=== PATIENT | male | born 1990 | race Caucasian/White ===

== ENCOUNTER 2017-07-30 12:42 | Emergency (ER) | payer SELFPAY ==
[2017-07-30] MEDS ORDERED: NORMAL SALINE 1000 ML 1,000 ML IV PRN (13:06)
[2017-07-30] MEDS ORDERED: IBUPROFEN 600 MG TABLET PO ONE (13:06)
[2017-07-30] MEDS ORDERED: KETOROLAC TROMETHAMINE INJ/PF 30 MG/1 ML SDV IV ONE (13:06)
[2017-07-30] MEDS ORDERED: ONDANSETRON HCL INJ/PF 4 MG/2 ML SDV IV ONE (13:06)
--- NOTE | 2017-07-30 13:07 | ER Document Report ---
ED Medical Screen (RME) - General Chief Complaint: Flu Symptoms Stated Complaint: HEADACHE Time Seen by Provider: 07/30/17 13:05 Mode of Arrival: Ambulatory Information source: Patient TRAVEL OUTSIDE OF THE [place] IN LAST 30 DAYS: No - HPI Patient complains to provider of: Headache Notes: 07/30/17 13:07 Patient is a 26-year-old male presenting to the emergency room today complaining of 2 day history of headache, with fever, sore throat, sinus congestion, neck pain, took Excedrin Migraine this morning as well as a muscle relaxer with no relief of symptoms, patient is febrile and tachycardic in the triage area - Related Data Allergies/Adverse Reactions: No Known Allergies Allergy (Verified 07/30/17 12:57) Past Medical History - Social History Drug Abuse: None - Past Medical History Cardiac Medical History: Reports: Hx Hypertension Renal/ Medical History: Denies: Hx Peritoneal Dialysis Past Surgical History: Reports: Hx Appendectomy - Immunizations History of Influenza Vaccine for 07/2017 - 12/2017 Season: No Physical Exam - Vital signs Vitals: Temp Pulse Resp BP Pulse Ox 101.2 F H 130 H 22 H 136/82 H 97 07/30/17 12:53 07/30/17 12:53 07/30/17 12:53 07/30/17 12:53 07/30/17 12:53 Course - Vital Signs Vital signs: Temp Pulse Resp BP Pulse Ox 101.2 F H 130 H 22 H 136/82 H 97 07/30/17 12:53 07/30/17 12:53 07/30/17 12:53 07/30/17 12:53 07/30/17 12:53
[2017-07-30 13:57] LABS: APPEARANCE,URINE CLEAR; BILIRUBIN,URINE NEGATIVE (NEGATIVE); GLUCOSE, URINE NEGATIVE (NEGATIVE); KETONES,URINE NEGATIVE (NEGATIVE); LEUKOCYTE ESTERASE,URINE NEGATIVE (NEGATIVE); NITRITE,URINE NEGATIVE (NEGATIVE); PROTEIN,URINE NEGATIVE (NEGATIVE); URINE SPECIFIC GRAVITY 1.012; UROBILINOGEN,URINE NEGATIVE mg/dL (<2.0)
--- NOTE | 2017-07-30 13:59 | ER Document Report ---
ED General - General Chief Complaint: Flu Symptoms Stated Complaint: HEADACHE Time Seen by Provider: 07/30/17 13:05 Mode of Arrival: Ambulatory Information source: Patient Notes: 26 yo hx htn (stopped his meds-lost weight), woke up rachel morning and had sore throat and excruciating headache, hard to swallow. Went to work at home, throbbing FIGUEROA got worse, tinnitus. Today woke up with frontal FIGUEROA, fevers through the night. Tried to social worker delinquency prevention again, took muscle relaxer without relief. Neck soreness with movement, nausea intermittently, no myalgia or arthralgia. No cough, no rash, no v/d, no penile, testicle or scrltal pain. No abdominal pain. Apical heart rate 84 at this time. IV fluid running. TRAVEL OUTSIDE OF THE [place] 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 Lives with: Parents Family History: Reviewed & Not Pertinent Patient has suicidal ideation: No Patient has homicidal ideation: No - Past Medical History Cardiac Medical History: Reports: Hx Hypertension Renal/ Medical History: Denies: Hx Peritoneal Dialysis Past Surgical History: Reports: Hx Appendectomy Physical Exam - Vital signs Vitals: Temp Pulse Resp BP Pulse Ox 101.2 F H 130 H 22 H 136/82 H 97 07/30/17 12:53 07/30/17 12:53 07/30/17 12:53 07/30/17 12:53 07/30/17 12:53 Interpretation: Normal - General General appearance: Appears well, Alert - HEENT Head: Normocephalic, Atraumatic Eyes: Normal Conjunctiva: Normal Pupils: PERRL Tympanic membrane: Normal Mouth/Lips: Normal Mucous membranes: Dry Pharynx: Erythema - mild Neck: No: Lymphadenopathy, Meningismus, Thyromegally - Respiratory Respiratory status: No respiratory distress Chest status: Nontender Breath sounds: Normal Chest palpation: Normal - Cardiovascular Rhythm: Regular Heart sounds: Normal auscultation Murmur: No - Abdominal Inspection: Normal Distension: No distension Bowel sounds: Normal Tenderness: Nontender Organomegaly: No organomegaly - Back Back: Normal, Nontender. No: CVA tenderness - Extremities General upper extremity: Normal inspection, Nontender, Normal color, Normal ROM , Normal temperature General lower extremity: Normal inspection, Nontender, Normal color, Normal ROM , Normal temperature, Normal weight bearing. No: Sharlene's sign - Neurological Neuro grossly intact: Yes Cognition: Normal Orientation: AAOx4 Elly Coma Scale Eye Opening: Spontaneous [place] Coma Scale Verbal: Oriented Elly Coma Scale Motor: Obeys Commands [place] Coma Scale Total: 15 Speech: Normal Motor strength normal: LUE, RUE, LLE, RLE Sensory: Normal - Psychological Associated symptoms: Normal affect, Normal mood - Skin Skin Temperature: Warm Skin Moisture: Dry Skin Color: Normal Skin irregularity: negative: Rash Course - Re-evaluation Re-evalutation: 07/30/17 16:[address] Mckinley patient can be discharged home. He feels much better headache is 0/5. 07/30/17 16:42 - Vital Signs Vital signs: Temp Pulse Resp BP Pulse Ox 98.3 F 107 H 20 117/57 L 98 07/30/17 16:13 07/30/17 16:13 07/30/17 16:13 07/30/17 16:13 07/30/17 16:13 - Laboratory Result Diagrams: 07/30/17 13:45 07/30/17 13:45 Laboratory results interpreted by me: 07/30/17 07/30/17 07/30/17 13:10 13:45 13:45 WBC 17.5 H Monocytes % 15.6 H Absolute Neutrophils 12.1 H Absolute Monocytes 2.7 H Glucose 122 H Urine Blood LARGE H Discharge - Discharge Clinical Impression: Microscopic hematuria, headache Fever Qualifiers: Fever type: unspecified Qualified Code(s): R50.9 - Fever, unspecified Condition: Good Disposition: HOME, SELF-CARE Instructions: Acetaminophen, Intravenous Compazine for Headaches ([facility]), Use of Diphenhydramine, Family Physicians / Practices, Fever ([facility]), Headache ([facility]) Additional Instructions: plenty of fluids rest to er if worse throat culture is pending urine culture is pending copy of lab work given to you see the urologist for the blood seen in the urinalysis see family practice doctor for follow up Please complete the patient satisfaction survey if you get one, and return it.. If you do not receive a survey, then you can go to the [facility] website, [email or web address] and place your comments about your very good care. Thank you very much. It was a pleasure being your medical provider today. Forms: Return to Work Referrals: DIANA GUILLORY MD [[facility]] - Follow up in 3-5 days
[2017-07-30 14:05] LABS: ABSOLUTE LYMPHOCYTES (AUTO) 2.6 10^3/uL (0.5-4.7); ABSOLUTE MONOCYTES (AUTO) 2.7 10^3/uL (0.1-1.4); ABSOLUTE NEUT (AUTO) 12.1 10^3/uL (1.7-8.2); BASOPHILS % (AUTO) 0.2 % (0-2); EOSINOPHILS % (AUTO) 0.1 % (0-6); HEMATOCRIT 43.1 % (37.9-51.0); HEMOGLOBIN 14.9 g/dL (13.5-17.0); HGB HCT DIFFERENCE 1.6; LYMPHOCYTES % (AUTO) 14.9 % (13-45); MEAN CORPUSCULAR HEMOGLOBIN 28.7 pg (27.0-33.4); MEAN CORPUSCULAR HGB CONC 34.7 g/dL (32.0-36.0); MEAN CORPUSCULAR VOLUME 83 fl (80-97); MONOCYTES % (AUTO) 15.6 % (3-13); RED CELL DISTRIBUTION WIDTH 13.6 % (11.5-14.0); SEGMENTED NEUTROPHILS % (AUTO) 69.2 % (42-78); WHITE BLOOD COUNT 17.5 10^3/uL (4.0-10.5)
[2017-07-30] MEDS ORDERED: DIPHENHYDRAMINE HCL 50 MG/ML VIAL IV ONE (14:18)
[2017-07-30] MEDS ORDERED: METOCLOPRAMIDE HCL INJ/PF 10 MG/2 ML SDV IV ONE (14:19)
[2017-07-30] MEDS ORDERED: NORMAL SALINE 1000 ML 1,000 ML IV ONE (14:20)
[2017-07-30 14:22] LABS: ANION GAP 15 (5-19); BLOOD UREA NITROGEN 11 mg/dL (7-20); CALCIUM 9.6 mg/dL (8.4-10.2); CARBON DIOXIDE 23 mmol/L (22-30); CHLORIDE 100 mmol/L (98-107); GLUCOSE 122 mg/dL (75-110); SODIUM 138.1 mmol/L (137-145)
[2017-07-30 16:14] VITALS: BP 117/57
== END 2017-07-30 16:53 | disposition home or self-care (01) ==
LOC: ER 12:42
DX: R31.29 Other microscopic hematuria (principal); R50.9 Fever, unspecified; R51 Headache; J02.9 Acute pharyngitis, unspecified; R13.10 Dysphagia, unspecified; R11.0 Nausea; F17.200 Nicotine dependence, unspecified, uncomplicated
CPT/HCPCS: 99284; 96361; 96374; 96375; 36415; 87040; 87070; 87880; 85025; 80048; 81001; 87804; J1200; J1885; J2765; J2405; J7030